=== PATIENT | male | born 1935 | race Caucasian/White ===

== ENCOUNTER 2017-11-14 06:07 | Day surgery (SDC) | payer OTHER ==
[2017-11-13 09:54] VITALS: BMI 22.2
[~2017-11-14 06:07] MED LIST: ceFAZolin SODIUM 1 GM VIAL IVPB ONE
[2017-11-14] MEDS ORDERED: SUCCINYLCHOLINE CHLORIDE 200 MG/10 ML VIAL ONE (07:23)
[2017-11-14] MEDS ORDERED: MIDAZOLAM HCL 2 MG/2 ML SINGLE DOSE VIAL ONE (07:23)
[2017-11-14] MEDS ORDERED: PROPOFOL 20 ML ONE ×3 (07:24)
--- NOTE | 2017-11-14 07:48 | HP ---
History & Physical Update - History History: No Change - Physical Physical: No Change - Assessment Assessment: No Change - Plan Plan: No Change
[2017-11-14] MEDS ORDERED: ACETAMINOPHEN 1000 MG/100 ML VIAL (NON FORMULARY) IVPB ONE (07:49)
[2017-11-14] MEDS ORDERED: ceFAZolin SODIUM 1 GM VIAL ONE (07:55)
[2017-11-14] MEDS ORDERED: IBUPROFEN 800 MG/8 ML IJ IVPB SCH (08:00)
[2017-11-14] MEDS ORDERED: ceFAZolin SODIUM 1 GM VIAL IVPB ONE (08:00)
[2017-11-14] MEDS ORDERED: DEXTROSE 5%-0.45% SALINE 1,000 ML IV SCH (08:00)
[2017-11-14] MEDS ORDERED: ePHEDrine SULFATE 50 MG/1 ML AMPULE ONE (08:07)
[2017-11-14] MEDS ORDERED: LIDOCAINE HCL 2% JELLY 10 ML CARTRIDGE ONE (08:19)
[2017-11-14] MEDS ORDERED: LIDOCAINE HCL 2% JELLY 10 ML CARTRIDGE TP ONE (08:40)
[2017-11-14] MEDS ORDERED: ONDANSETRON 4 MG/2 ML VIAL IVPUSH PRN (09:08)
[2017-11-14] MEDS ORDERED: oxyCODONE HCL 5 MG TABLET PO PRN (09:08)
[2017-11-14] MEDS ORDERED: LACTATED RINGERS SOLUTION 1,000 ML IV SCH (09:15)
--- NOTE | 2017-11-14 11:13 | OP ---
DATE OF OPERATION: 11/14/2017 PREOPERATIVE DIAGNOSES: Urinary retention. BPH. POSTOPERATIVE DIAGNOSES: Urinary retention. BPH. PROCEDURES: Cystoscopy. GreenLight laser ablation of prostate. ANESTHESIA: General; Lisette Acuna MD ESTIMATED BLOOD LOSS: Minimal. SPECIMENS: None. DRAINS: A 20-[place] Dockery catheter. FINDINGS: Obstructive prostate tissue. PREOPERATIVE INDICATIONS: The patient is an 82-year-old male who has urinary retention. He has a very enlarged prostate. He also has a hypotonic bladder. However, he was urinating up until a few weeks ago. He was offered a GreenLight laser ablation of the prostate. OPERATION: The patient was brought to the OR, placed on the table in the supine position, given general anesthesia and IV antibiotics, and placed in the modified lithotomy position. The groin was prepped and draped sterilely. Cystoscopy was performed. The distal urethra appeared to be unremarkable. The sphincter was intact. The prostate tissue was view. The bladder was visualized. There was one diverticulum and trabeculations throughout. No tumors were seen. There were some stone fragments throughout the bladder. Both UOs were visualized. Using the GreenLight laser, the obstructive tissue from the bladder neck to the area just proximal to the verumontanum was vaporized. This affected an open prostatic fossa. Both UOs were again seen and were not injured. The sphincter itself was also not injured. Good hemostasis was observed. A 20-[place] Dockery catheter was left in place for postoperative drainage and the patient was woken up. Ben [id number]
[2017-11-14] MEDS ORDERED: ACETAMINOPHEN INJECTION 100 ML IVPB ONE (11:42)
[2017-11-14 12:07] VITALS: PULSE 74
[2017-11-14 13:30] VITALS: TEMP 97.8
[2017-11-14 13:31] VITALS: BP 101/64
== END 2017-11-14 13:25 | disposition home or self-care (01) ==
LOC: JASU-SURG 06:07
PROVIDERS: ATTEND Urology
PROC: 0TJB8ZZ Inspection of Bladder, Via Natural or Artificial Opening Endoscopic (ICD-10-PCS; 2017-11-14)
PROC: 0VT08ZZ Resection of Prostate, Via Natural or Artificial Opening Endoscopic (ICD-10-PCS; principal; 2017-11-14 07:30)
DX: N40.1 Benign prostatic hyperplasia with lower urinary tract symptoms (principal); R33.8 Other retention of urine; I10 Essential (primary) hypertension
CPT/HCPCS: 94760; J0131

== ENCOUNTER 2017-11-17 20:05 | Emergency (ER) | payer OTHER ==
--- NOTE | 2017-11-17 20:53 | PDOC ---
Rapid Medical Evaluation Chief Complaint: Urinary Problem Time Seen by Provider: 11/17/17 20:48 Medical Evaluation: Allergies Allergy/AdvReac Type Severity Reaction Status Date / Time No Known Drug Allergies Allergy Verified 11/13/17 09:26 11/17/17 20:49 s/p TURP on 11/14/[address] Patel had otriz catheter removed today in urology office. now with urinary retention. PE: patient alert ox3 A: urinary retention P: ua ucx insert ortiz patient to the ER for further management of care. Discharge Disposition - Diagnosis Urinary retention - Referrals - Patient Instructions - Post Discharge Activity
[2017-11-17 21:02] VITALS: BP 114/58; PULSE 77; TEMP 99; BMI 22.2
--- NOTE | 2017-11-17 21:32 | PDOC ---
History of Present Illness - General Chief Complaint: Urinary Problem Stated Complaint: CATHETER PROBLEMS Time Seen by Provider: 11/17/17 20:48 - History of Present Illness Initial Comments: 11/17/17 21:58 The patient is an 82 year old male with a history of HTN, HLD, BPH, anemia who presents for evaluation of urinary retention. The patient had a TURP procedure performed on 11/14/[address] Patel and had a ortiz catheter in place which was removed today. The patient notes 2 episodes of urination since having the catheter removed, but has been unable to urinate since 4pm today with a sensation of needing to urinate. He otherwise denies fevers, chills, SOB , chest pain, nausea, vomiting, abdominal pain, or changes with bowel movements. Past History - Past Medical History Allergies/Adverse Reactions: Allergies Allergy/AdvReac Type Severity Reaction Status Date / Time No Known Drug Allergies Allergy Verified 11/13/17 09:26 Home Medications: Ambulatory Orders Cephalexin [Keflex] 500 mg PO HS 11/13/17 Finasteride 5 mg PO HS 11/13/17 Folic Acid 1 mg PO HS 11/13/17 Metoprolol Succinate 25 mg PO HS 11/13/17 Pantoprazole Sodium 40 mg PO HS 11/13/17 Cefuroxime Axetil [Ceftin -] 500 mg PO Q12H #20 tablet 11/14/17 Anemia: Yes Asthma: No Cancer: No Cardiac Disorders: Yes (CAD) CVA: No COPD: No CHF: No DVT: No Dementia: No Diabetes: No GI Disorders: Yes (GASTRITIS;ESOPHAGEAL STRICTURE) Disorders: Yes (BPH) HTN: Yes Hypercholesterolemia: Yes Liver Disease: No Seizures: No Thyroid Disease: No - Surgical History Abdominal Surgery: No Appendectomy: No Cardiac Surgery: No Cholecystectomy: No Lung Surgery: No Neurologic Surgery: No Orthopedic Surgery: Yes (LEFT SHOULDER ROTATOR CUFF REPAIR) - Suicide/Smoking/Psychosocial Hx Smoking History: Former smoker Have you smoked in the past 12 months: No If you are a former smoker, when did you quit?: MANY YRS AGO Information on smoking cessation initiated: No Hx Alcohol Use: No Drug/Substance Use Hx: No Substance Use Type: None Hx Substance Use Treatment: No Review of Systems - Review of Systems Comments:: 11/17/17 22:00 Constitutional: No fevers, chills, fatigue, malaise HEENT: No Rhinorrhea, nasal congestion, visual changes Cardiovascular: No chest pain, syncope, palpitations, lightheadedness Respiratory: No Cough, SOB, Hemoptysis, Gastrointestinal: No Abdominal pain, Nausea, Vomiting, Constipation, Diarrhea, Melena Genitourinary: Increased urgency and Inability to Urinate. No Dysuria, Frequency, Hematuria, Flank pain Musculoskeletal: No Myalgia, arthralgia Skin: No rashes, itching, bruising, pallor Neurologic: No Headache, Dizziness, Numbness, Weakness, or Tingling Psychiatric: No Hallucinations. No SI or HI *Physical Exam - Vital Signs Last Vital Signs Temp Pulse Resp BP Pulse Ox 99 F 77 20 114/58 98 11/17/17 20:52 11/17/17 20:52 11/17/17 20:52 11/17/17 20:52 11/17/17 20:52 - Physical Exam Comments: 11/17/17 22:00 General Appearance: Nourished. No Apparent Distress HEENT: EOMI, MANPREET. No Pharyngeal Erythema, Tonsillar Exudate, Tonsillar Erythema Neck: No Cervical Lymphadenopathy Respiratory/Chest: Lungs Clear, Normal Breath Sounds. No Crackles, Rales, Rhonchi, Wheezing Cardiovascular: Regular Rhythm, Regular Rate. No Murmur, Gallops, Rubs Gastrointestinal/Abdominal: Normal Bowel Sounds, Soft. No Guarding, Rebound, Tenderness Musculoskeletal: No CVA Tenderness Extremity: Normal Capillary Refill Integumentary: Normal Color, Dry, Warm Neurologic: Fully Oriented, Alert, Normal Mood/Affect, Normal Response, Medical Decision Making - Medical Decision Making 11/17/17 22:01 The patient is an 82 year old male with a history of HTN, HLD, BPH, anemia who presents for evaluation of urinary retention. Given the patient's history and physical exam, it is likely the patient requires a ortiz catheter given is urinary retention. We will place another ortiz catheter and send a UA, and urine culture. We will continue to monitor and reassess while here in the ED. 11/17/17 22:42 Ortiz was successfully placed with about 450 ccs of urine drainage. We are comfortable discharging the patient home with urology follow up. We discussed the results, plan, and return precautions with the patient who voiced understanding and is agreeable with the plan. *DC/Admit/Observation/Transfer Diagnosis at time of Disposition: Urinary retention - Discharge Dispostion Disposition: HOME Condition at time of disposition: Stable Decision to Admit order: No - Referrals Referrals: Jama Weston [Primary Care Provider] - Vamsi Patel MD [Staff Physician] - - Patient Instructions Printed Discharge Instructions: How to Care for Your Ortiz Catheter -- Male, DI for Urinary Retention in Men Additional Instructions: Please return to the ER if you experience concerning or worsening symptoms including worsening pain or fevers. Please call to schedule a follow up appointment with your urologist tomorrow to discuss your ER visit and further management of your symptoms. - Post Discharge Activity
[2017-11-17] MEDS ORDERED: LIDOCAINE HCL 2% JELLY 10 ML CARTRIDGE ONE (22:10)
[2017-11-17 22:45] LABS: URINE APPEARANCE CLEAR; URINE BILIRUBIN NEGATIVE (<2.0 mg/dL); URINE COLOR STRAW; URINE GLUCOSE (UA) NEGATIVE (NEGATIVE); URINE KETONE NEGATIVE (NEGATIVE); URINE NITRITE NEGATIVE (NEGATIVE); URINE UROBILINOGEN NEGATIVE mg/dL (0.2-1.0)
[2017-11-17 22:50] LABS: URINE LEUK ESTERASE 1+ (NEGATIVE); URINE PROTEIN 1+ (NEGATIVE)
[2017-11-17 22:51] LABS: EPI CELLS RARE /HPF (FEW); URINE BACTERIA RARE /hpf (NONE SEEN); URINE MUCUS RARE
--- NOTE | 2017-11-17 23:23 | PDOC ---
Attending Attestation - Resident Resident Name: Jamie Raygoza - ED Attending Attestation I have performed the following: I have examined & evaluated the patient, The case was reviewed & discussed with the resident, I agree w/resident's findings & plan, Exceptions are as noted <Henrietta Agustin - Last Filed: 11/17/17 23:23> - HPI HPI: 11/17/17 23:28 The patient is a 82 year old male, with a significant past medical history of HTN, HLD, BPH, and anemia, who presents to the emergency department with urinary retention after ortiz removal today. The patient reportedly had a TURP last week and a ortiz placed which was taken out earlier today. He states he has not been able to urinate since the ortiz removal. The patient denies chest pain, shortness of breath, headache and dizziness. The patient denies fever, chills, nausea, vomit, diarrhea and constipation. The patient denies dysuria, urgency and hematuria. Allergies: NKDA Social history: denies toxic habits - Physicial Exam PE: 11/17/17 23:28 GENERAL: Well-appearing, well-nourished. No apparent distress. HEENT: Normocephalic, atraumatic. PERRL, EOM intact. CARDIOVASCULAR: Normal S1, S2. Regular rate and rhythm. PULMONARY: Clear to auscultation bilaterally. ABDOMEN: (+) distended on arrival. alleviated after removal of >400ccs urine. Soft, non- tender. EXTREMITIES: Normal ROM in all four extremities. No gross deformities. SKIN: Warm, dry. No rash NEUROLOGICAL: No focal neurological deficits. - Medical Decision Making 11/17/17 23:29 82yo M presents with urinary retention s/p ortiz removal s/p TURP last week. >400cc urine removed today. Plan: Discharge with ortiz and leg bag, follow-up with urologist 11/17/17 23:30 Documentation prepared by Evelia Lopez, acting as emergency medical dispatcher for Henrietta Agustin MD <Evelia Lopez - Last Filed: 11/17/17 23:30>
== END 2017-11-18 00:10 | disposition home or self-care (01) ==
LOC: JER 20:05
PROC: 0T9B70Z Drainage of Bladder with Drainage Device, Via Natural or Artificial Opening (ICD-10-PCS; principal; 2017-11-17)
DX: E78.5 Hyperlipidemia, unspecified (principal); N40.0 Benign prostatic hyperplasia without lower urinary tract symptoms
CPT/HCPCS: 51702; 81003; 81015; 87086; 99282-25